=== PATIENT | male | born 1950 | race Caucasian/White ===

== ENCOUNTER → 2017-10-06 | Outpatient (CLI) | payer MEDICARE ==
--- NOTE | 2017-10-06 15:20 | Diagnostic Imaging Report ---
Indication: Abdominal mass and abdominal pain Technique: Spiral acquisitions obtained through the abdomen and pelvis. Patient ingested oral contrast No IV contrast utilized, due to renal insufficiency. Multiplanar reconstructions were generated. Total dose length product 613.7 mGycm. CTDIvol(s) 12.33 mGy. Dose reduction achieved using automated exposure control Comparison: None Findings: There is a moderate amount of retained stool throughout the colon. There are a few colonic diverticula. No evidence of diverticulitis. What may be a normal appendix is seen immediately adjacent to the iliacus muscle, but this is far from certain. In any case, no findings to suggest acute appendicitis are evident. Contrast is seen throughout most but not all of the small bowel, which is normal in caliber. No definite small bowel wall thickening. The distal esophagus, stomach, duodenum are unremarkable. No free or loculated intraperitoneal air or fluid is evident. There is a small right-sided Bochdalek hernia which contains only fat. Lack of IV contrast limits assessment of solid organs. The spleen is borderline enlarged, measuring 13 cm long axis dimension. No gallstones are demonstrated. There is apparent thickening of the gallbladder wall, this is probably an artifact of under distention. The liver is grossly unremarkable. The bile ducts, pancreas, adrenals are unremarkable. The kidneys are slightly atrophic with lobulated contours. No focal abnormality. No retroperitoneal or mesenteric mass or adenopathy. No pelvic mass or adenopathy. The bladder demonstrates at least mild wall thickening. The included lung bases are clear. The bones demonstrate degenerative spondylosis changes Impression: Bladder wall thickening, could indicate cystitis or chronic bladder outlet obstruction. No definite acute process otherwise Borderline splenomegaly Mild bilateral renal atrophy Apparent gallbladder wall thickening, probably an artifact of under distention. No definite gallstones. Consider ultrasound if there is any concern for acute cholecystitis, however. Colonic diverticulosis. No evidence of diverticulitis Degenerative spondylosis. See separate lumbar MRI report for details of lumbar disc pathology Incidental finding small fat-containing right-sided Bochdalek hernia The CT scanner at [facility] is accredited by the [employer] and the scans are performed using protocols designed to limit radiation exposure to as low as reasonably achievable to attain images of sufficient resolution adequate for diagnostic evaluation.
--- NOTE | 2017-10-06 15:24 | Diagnostic Imaging Report ---
Indication: , One week ago, right hip area, right-sided radiculopathy Technique: Sagittal T1 and T2 fast spin echo, sagittal STIR, axial T1 and T2 fast spin-echo images of the lumbar spine Comparison: none Findings: Vertebral body alignment is normal. Vertebral body heights are preserved. Vertebral body marrow signal is normal. The conus medullaris terminates at the T12-L1 level. There is focal anterior central superior endplate depression of the superior L4 endplate. There appears to be minimal adjacent marrow edema. Much less striking but somewhat similar findings are seen involving the superior L5 endplate At T12-L1, there is very mild circumferential annular bulge. The disc space is minimally narrowed posteriorly. There is minimal neural foraminal narrowing due to facet arthrosis.. The bulging disc and short pedicles result in borderline narrowing of the spinal canal, but no definite significant spinal stenosis. At L1-2, the disc space is preserved. There is minimal circumferential annular bulge, but no evidence of significant spinal stenosis. The neural foramina are preserved. At L2-3, there is left paracentral and mild subarticular and intraforaminal disc protrusion. This results in mild compromise of the neural foramen, although the perineural fat is preserved. This also results in some compromise of the lateral recess. No significant right neural foraminal stenosis is demonstrated. There is also ligamentum flavum hypertrophy. No significant central canal stenosis. The disc space is preserved At L3-4, there is moderate degenerative disc narrowing. There is mild fluid within the disc, but no significant adjacent marrow edema. There may be slight Modic type II changes of the superior L4 endplate. There is broad-based posterior disc protrusion which, in combination with short pedicles, results in moderate narrowing of the spinal canal. There is a high signal intensity zone within the protruding disc. The protruding disc results in only minimal compromise of the right neural foramen but may, in combination with proliferative facet arthrosis, resulting in mild to moderate narrowing of the left neural foramen. At L4-5, there is mild degenerative disc narrowing. There is circumferential annular bulge which does not significantly compromise the spinal canal. There is minimal if any neural foraminal narrowing. At L5-S1, the disc spaces preserved. There is mild circumferential annular bulge, which does not appear significantly compromise the spinal canal. There is evidence of moderate neural foraminal stenosis, due to combination of bulging disc and facet arthrosis. The included extra spinal soft tissues are unremarkable. Impression: Multilevel degenerative changes, as detailed on a level by level basis above, most evident at L2-3 and L3-4 Focal anterior superior endplate depression at L4. This is probably just a large intravertebral disc herniation (so-called Schmorl's node, and the adjacent edema is probably just related to the associated degenerative changes. However, this could also represent an acute or subacute tiny superior endplate compression fracture. Correlate with clinical findings No acute abnormality otherwise
== END | disposition home or self-care (01) ==
LOC: CAT 09:00
DX: R10.9 Unspecified abdominal pain (principal); R16.1 Splenomegaly, not elsewhere classified; N26.1 Atrophy of kidney (terminal); K57.30 Diverticulosis of large intestine without perforation or abscess without bleeding; M47.9 Spondylosis, unspecified; K46.9 Unspecified abdominal hernia without obstruction or gangrene; M54.10 Radiculopathy, site unspecified
CPT/HCPCS: 72148; 74176

== ENCOUNTER 2020-04-09 12:29 | Outpatient (RCR) | payer MEDICARE | END 2020-04-26 | disposition home or self-care (01) | LOC: WCC 12:29 | DX: T86.821 Skin graft (allograft) (autograft) failure (principal); Z95.0 Presence of cardiac pacemaker; Z95.1 Presence of aortocoronary bypass graft; I12.9 Hypertensive chronic kidney disease with stage 1 through stage 4 chronic kidney disease, or unspecified chronic kidney disease; N18.9 Chronic kidney disease, unspecified; I25.2 Old myocardial infarction; Z85.048 Personal history of other malignant neoplasm of rectum, rectosigmoid junction, and anus | CPT/HCPCS: 97605; G0277 ==

== ENCOUNTER → 2020-04-09 | Outpatient (CLI) | payer MEDICARE ==
--- NOTE | 2020-04-09 17:40 | Diagnostic Imaging Report ---
Indication: Cough Technique: One view of the chest Comparison: none Findings: Symmetric bilateral basilar nodular opacities presumably represent nipple shadows. No acute infiltrates, effusions, or congestion. Left chest AICD and mitral clips are noted. The heart size is normal. There are median sternotomy sutures noted. Impression: No acute process. Findings as noted
== END | disposition home or self-care (01) ==
LOC: RAD 16:02
DX: R05 Cough (principal); Z95.810 Presence of automatic (implantable) cardiac defibrillator
CPT/HCPCS: 71046

== ENCOUNTER 2020-04-30 12:00 | Outpatient (RCR) | payer MEDICARE | END 2020-05-27 | disposition home or self-care (01) | LOC: WCC 12:00 | DX: T86.821 Skin graft (allograft) (autograft) failure (principal) | CPT/HCPCS: 97605; G0277; G0463 ==